=== PATIENT | male | born 1985 | race Caucasian/White ===

== ENCOUNTER 2017-07-10 12:35 | Emergency (ER) | payer SELFPAY ==
[2017-07-10 12:37] VITALS: BP 137/85; PULSE 93; RESP 14; TEMP 97.7; O2SAT 98
[2017-07-10 14:15] LABS: AUTOMATED NEUTROPHIL # 5.3 TH/MM3 (1.8-7.7); BASOPHIL % 0.2 % (0.0-2.0); EOSINOPHIL # 0.1 TH/MM3 (0-0.4); EOSINOPHIL % 1.4 % (0.0-4.0); HEMATOCRIT 47.3 % (39.0-51.0); HEMOGLOBIN 16.9 GM/DL (13.0-17.0); LYMPH % 22.6 % (9.0-44.0); LYMPHOCYTE # 1.8 TH/MM3 (1.0-4.8); MEAN CELL VOLUME 92.6 FL (80.0-100.0); MEAN CORPUSCULAR HEMOGLOBIN 33.1 PG (27.0-34.0); MEAN CORPUSCULAR HGB CONC 35.8 % (32.0-36.0); MEAN PLATELET VOLUME 7.8 FL (7.0-11.0); MONO % 8.6 % (0.0-8.0); MONOCYTE # 0.7 TH/MM3 (0-0.9); NEUT % 67.2 % (16.0-70.0); PLATELET COUNT 246 TH/MM3 (150-450); RED BLOOD COUNT 5.11 MIL/MM3 (4.50-5.90); RED CELL DISTRIBUTION WIDTH 13.6 % (11.6-17.2)
[2017-07-10 14:22] LABS: INTERNATIONAL NORMALIZED RATIO 1.1 RATIO; PROTHROMBIN TIME - PATIENT 10.9 SEC (9.8-11.6)
[2017-07-10 14:30] LABS: ALBUMIN 4.4 GM/DL (3.4-5.0); ALT (GPT) 575 U/L (12-78); AST (GOT) 166 U/L (15-37); BICARBONATE 26.1 MEQ/L (21.0-32.0); BLOOD UREA NITROGEN 8 MG/DL (7-18); CALCIUM 9.2 MG/DL (8.5-10.1); CHLORIDE 106 MEQ/L (98-107); CREATININE 0.87 MG/DL (0.60-1.30); GLOMERULAR FILTRATION RATE 102 ML/MIN (>89); GLUCOSE,RANDOM 85 MG/DL (74-106); LIPASE 115 U/L (73-393); SODIUM (NA) 138 MEQ/L (136-145)
[2017-07-10 14:31] LABS: ALKALINE PHOSPHATASE 90 U/L (45-117); TOTAL BILIRUBIN ADULT 1.1 MG/DL (0.2-1.0); TOTAL PROTEIN 7.7 GM/DL (6.4-8.2)
--- NOTE | 2017-07-10 16:23 | RADRPT ---
EXAM DATE/TIME: 07/10/2017 15:37 [place] COMPARISON: No previous studies available for comparison. INDICATIONS : Right upper quadrant pain. MEDICAL HISTORY : Right upper quadrant pain. SURGICAL HISTORY : None. ENCOUNTER: Initial ACUITY: 1 day PAIN SCORE: 0/10 LOCATION: Right upper quadrant MEASUREMENTS: LIVER: 16.40 cm length COMMON DUCT: 2 mm RIGHT KIDNEY: 12.8 x 4.7 x 5.6 cm FINDINGS: LIVER: Normal echotexture without focal lesion or ductal dilatation. COMMON DUCT: No intraluminal mass or stone visualized. GALLBLADDER: Contains no stones, demonstrates no wall thickening or pericholecystic fluid. PANCREAS: Not well visualized. RIGHT KIDNEY: No evidence of hydronephrosis, stone, or mass. CONCLUSION: 1. Examination is within normal limits. The pancreas was not well-visualized. Jomar Carlin MD on July 10, 2017 at 16:21 Board Certified Radiologist. This report was verified electronically.
[2017-07-10] MEDS ORDERED: TRAM50 PO (16:40)
[2017-07-10] MEDS ORDERED: ZOFR4TAB3 SL (16:40)
--- NOTE | 2017-07-10 16:46 | PD ---
HPI Chief Complaint: GI Complaint Time Seen by Provider: 15:35 Travel History International Travel<30 days: No Contact w/Intl Traveler<30days: No Traveled to known affect area: No History of Present Illness HPI C/O UPPER ABDOMINAL PAIN, CRAMPY, INTERMITTENT, 7/10, ASSOC WITH NAUSEA AND OCC VOMITING....NO DIARRHEA/ROUSE/FEVER/CP/ AT THIS TIME PATIENT IS SYMPTOM FREE EXCEPT FOR SOME OCCASIONAL NAUSEA. PFSH Past Medical History Medical History: Denies Significant Hx Past Surgical History Surgical History: No Previous Surgery Social History Alcohol Use: No Tobacco Use: No Substance Use: No Allergies-Medications (Allergen,Severity, Reaction): Coded Allergies: No Known Allergies (Unverified , 07/10/17) Reported Meds & Prescriptions Reported Meds & Active Scripts Active No Active Prescriptions or Reported Medications Review of Systems General / Constitutional: No: Fever Eyes: No: Visual changes HENT: No: Headaches Cardiovascular: No: Chest Pain or Discomfort Respiratory: No: Shortness of Breath Gastrointestinal: Positive: Nausea, Vomiting, Abdominal Pain Genitourinary: No: Dysuria Musculoskeletal: No: Pain Skin: No Rash Neurologic: No: Weakness Psychiatric: No: Depression Endocrine: No: Polydipsia Hematologic/Lymphatic: No: Easy Bruising Physical Exam Narrative GENERAL: SKIN: Warm and dry. HEAD: Atraumatic. Normocephalic. EYES: Pupils equal and round. No scleral icterus. No injection or drainage. ENT: No nasal bleeding or discharge. Mucous membranes pink and moist. NECK: Trachea midline. No JVD. CARDIOVASCULAR: Regular rate and rhythm. RESPIRATORY: No accessory muscle use. Clear to auscultation. Breath sounds equal bilaterally. GASTROINTESTINAL: Abdomen soft, non-tender, nondistended. RUQ TTP/EPIG BUT WITHOUT REBOUND, GUARDING/RIGIDITY MUSCULOSKELETAL: Extremities without clubbing, cyanosis, or edema. No obvious deformities. NEUROLOGICAL: Awake and alert. No obvious cranial nerve deficits. Motor grossly within normal limits. Five out of 5 muscle strength in the arms and legs. Normal speech. PSYCHIATRIC: Appropriate mood and affect; insight and judgment normal. Data Data Last Documented VS Vital Signs Date Time Temp Pulse Resp B/P (MAP) Pulse Ox O2 Delivery O2 Flow Rate FiO2 07/10/17 12:37 97.7 93 14 137/85 (102) 98 Orders Orders Complete Blood Count With Diff (07/10/17 13:09) Comprehensive Metabolic Panel (07/10/17 13:09) Lipase (07/10/17 13:09) Prothrombin Time / Inr (Pt) (07/10/17 13:09) Act Partial Throm Time (Ptt) (07/10/17 13:09) Us Abdomen Gallbladder (07/10/17 ) Labs Laboratory Tests Test 07/10/17 13:52 White Blood Count 8.0 TH/MM3 Red Blood Count 5.11 MIL/MM3 Hemoglobin 16.9 GM/DL Hematocrit 47.3 % Mean Corpuscular Volume 92.6 FL Mean Corpuscular Hemoglobin 33.1 PG Mean Corpuscular Hemoglobin Concent 35.8 % Red Cell Distribution Width 13.6 % Platelet Count 246 TH/MM3 Mean Platelet Volume 7.8 FL Neutrophils (%) (Auto) 67.2 % Lymphocytes (%) (Auto) 22.6 % Monocytes (%) (Auto) 8.6 % Eosinophils (%) (Auto) 1.4 % Basophils (%) (Auto) 0.2 % Neutrophils # (Auto) 5.3 TH/MM3 Lymphocytes # (Auto) 1.8 TH/MM3 Monocytes # (Auto) 0.7 TH/MM3 Eosinophils # (Auto) 0.1 TH/MM3 Basophils # (Auto) 0.0 TH/MM3 CBC Comment DIFF FINAL Differential Comment Prothrombin Time 10.9 SEC Prothromb Time International Ratio 1.1 RATIO Activated Partial Thromboplast Time 26.8 SEC Blood Urea Nitrogen 8 MG/DL Creatinine 0.87 MG/DL Random Glucose 85 MG/DL Total Protein 7.7 GM/DL Albumin 4.4 GM/DL Calcium Level 9.2 MG/DL Alkaline Phosphatase 90 U/L Aspartate Amino Transf (AST/SGOT) 166 U/L Alanine Aminotransferase (ALT/SGPT) 575 U/L Total Bilirubin 1.1 MG/DL Sodium Level 138 MEQ/L Potassium Level 4.1 MEQ/L Chloride Level 106 MEQ/L Carbon Dioxide Level 26.1 MEQ/L Anion Gap 6 MEQ/L Estimat Glomerular Filtration Rate 102 ML/MIN Lipase 115 U/L [facility] Medical Decision Making Medical Screen Exam Complete: Yes Emergency Medical Condition: Yes Medical Record Reviewed: Yes Differential Diagnosis GASTROENTERITIS V BILIARY COLIC V PANCREATITIS V ABNL ELECTROLYTES Narrative Course PATIENT HAS MILD LFT ELEVATION, NL ALK PHOS, ULTRASOUND NEG FOR GALLSTONES...WILL REFER TO OUTPATIENT CLINIC FOR FURTHER CARE AND EVALUATION Diagnosis Primary Impression: ABNORMAL LIVER ENZYMES (NO GALLSTONES ON ULTRASOUND) Referrals: [facility] Patient Instructions: General Instructions Additional Instructions: AVOID TYLENOL, AVOID ALCOHOL AND MAKE FOLLOW UP APPOINTMENT FOR FURTHER LIVER TESTING THROUGH THIS CLINIC AND APPROPRIATE REFERRALS Scripts Tramadol (Ultram) 50 Mg Tab 50 MG PO Q4H Y for PAIN, #12 TAB 0 Refills Prov: Garrett Spicer MD 07/10/17 Ondansetron Odt (Zofran Odt) 4 Mg Tab 4 MG SL Q6HR Y for Nausea/Vomiting, #12 TAB 0 Refills Prov: Garrett Spiecr MD 07/10/17 Disposition: 01 DISCHARGE HOME Condition: Stable Garrett Spicer MD Jul 10, 2017 16:46
== END 2017-07-10 16:58 | disposition home or self-care (01) ==
LOC: NEPD 12:35
DX: R94.5 Abnormal results of liver function studies (principal); R11.2 Nausea with vomiting, unspecified
CPT/HCPCS: 76705; 80053; 83690; 85025; 85610; 85730

== ENCOUNTER 2017-09-23 21:44 | Emergency (ER) | payer SELFPAY ==
[~2017-09-23] VITALS: Ht 185.4 cm; Wt 95.0 kg
[~2017-09-23 21:44] MED LIST: TRAM50 PO; ZOFR4TAB3 SL
[2017-09-23 21:50] VITALS: BP 115/78; PULSE 68; RESP 16; TEMP 97.9; O2SAT 99
== END 2017-09-23 23:51 | disposition left against medical advice (07) ==
LOC: NED 21:44
DX: Z53.21 Procedure and treatment not carried out due to patient leaving prior to being seen by health care provider (principal)
CPT/HCPCS: 99281

== ENCOUNTER 2017-11-13 12:11 | Emergency (ER) | payer SELFPAY ==
[~2017-11-13] VITALS: Ht 185.4 cm; Wt 97.5 kg
[2017-11-13 12:16] VITALS: BP 140/79; PULSE 99; RESP 16; TEMP 99; O2SAT 97
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
[2017-11-13] MEDS: RESP: ALBUTEROL 2.5 MG/IPRATROPIUM 0.5 MG NEB (SCH) INH (12:39)
[2017-11-13] MEDS ORDERED: ALBUTEROL SULFATE 90 MCG/ACT HFA 8 GM INHALER INH ONE (12:45)
[2017-11-13] MEDS ORDERED: predniSONE 20 MG TAB PO ONE (12:45)
[2017-11-13] MEDS ORDERED: SULFAMETHOXAZOLE-TRIMETHOPRIM DS 800-160 MG TAB PO ONE (12:45)
[2017-11-13] MEDS ORDERED: VENTAER INH (13:05)
[2017-11-13] MEDS ORDERED: PRED20 PO (13:05)
[2017-11-13] MEDS ORDERED: BACT800T5 PO (13:05)
[2017-11-13] MEDS ORDERED: PROZ20CA11 PO (13:30)
[2017-11-13] MEDS ORDERED: SERO300T PO (13:30)
[2017-11-13] MEDS ORDERED: GABA300C5 PO (13:30)
== END 2017-11-13 13:46 | disposition home or self-care (01) ==
LOC: NEPK 12:11
DX: J40 Bronchitis, not specified as acute or chronic (principal); Z72.0 Tobacco use
CPT/HCPCS: 94640; 94664; 99283

== ENCOUNTER 2018-08-29 01:42 | Inpatient (IN) ==
[2018-08-29] MEDS ORDERED: Naloxone Inj 2 MG/2 ML Vial ONE (02:03)
[2018-08-29] MEDS ORDERED: Naloxone Inj 0.4 MG/ML Vial IV.PUSH ONE ×2 (02:16→05:55)
[2018-08-29] MEDS ORDERED: Sod Chloride 0.9% Inj 1,000 ML IV.SIG ONE (02:16)
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
[2018-08-29 02:34] LABS: Baso % (Auto) 0.5 % (0.0-2.0); Eos # (Auto) 0.2 th/mm3 (0.0-0.4); Eos % (Auto) 1.8 % (0.0-4.0); Hematocrit 44.2 % (39.0-51.0); Hemoglobin 15.4 gm/dL (13.0-17.0); Lymph # (Auto) 2.6 th/mm3 (1.0-4.8); Lymph % (Auto) 29.2 % (9.0-44.0); Mean Corpuscular HGB Conc 34.9 % (32.0-36.0); Mean Corpuscular Hemoglobin 31.5 pg (27.0-34.0); Mean Corpuscular Volume 90.2 fL (80.0-100.0); Mono # (Auto) 0.6 th/mm3 (0.0-0.9); Neut # (Auto) 5.5 th/mm3 (1.8-7.7); Neut % (Auto) 61.5 % (16.0-70.0); Platelet Count 247 th/mm3 (150-450); Red Cell Distribution Width 13.2 % (11.6-17.2); White Blood Count 8.9 th/mm3 (4.0-11.0)
[2018-08-29 02:50] LABS: Anion Gap 7 meq/L (5-15); Blood Urea Nitrogen 8 mg/dL (7-18); Calcium 8.2 mg/dL (8.5-10.1); Carbon Dioxide 26.6 meq/L (21.0-32.0); Chloride 105 meq/L (98-107); Glomerular Filtration Rate 72 mL/min (>89); Glucose,Random 132 mg/dL (74-106); Potassium 4.2 meq/L (3.5-5.1); Sodium 139 meq/L (136-145)
[2018-08-29] MEDS ORDERED: Acetaminophen 325 MG Tablet PO PRN (06:54)
[2018-08-29] MEDS ORDERED: Bisacodyl 10 MG Supp RECTAL PRN (06:54)
[2018-08-29 08:13] LABS: Amphetamine Screen,Urine Neg (Neg); Barbiturate Screen,Urine Neg (Neg); Cannabinoid Screen,Urine Neg (Neg); Cocaine Screen,Urine Neg (Neg)
[2018-08-29 08:20] LABS: Opiate Screen,Urine Neg (Neg)
[2018-08-29] MEDS: Sod Chloride 0.9% Inj 1,000 ML IV.CONT SCH ×2 (08:29→18:55)
--- NOTE | 2018-08-29 11:29 | P.HPIM ---
History of Present Illness Primary Care Physician: UNKNOWN Chief Complaint: I took a bag full of fentanyl History of Present Illness: 33-year-old male with a history of heroin, opioid, cocaine and alcohol abuse, PTSD, depression was brought to the emergency room via taxi with altered mental status. Patient admits snorting a entire bag of heroin and fentanyl prior to arrival. He reports he is depressed but denies any intent to harm himself. Patient reports he is currently in sober living facility however found a bag of drugs and reports that he was trying to get high. He does admit to feeling at rock bottom and admits that this is the third time in this past month that he has actually overdose on drugs. He reports a history of opiate abuse for the past 20 years and started using in middle school. He also reports this week used cocaine and drank heavily alcohol. He is also dependent on benzodiazepine and uses Xanax and Klonopin on the streets. He recently started on Wellbutrin due to continued depression supplementing his Prozac as prescribed by provider at [facility]. He also reports taking Cogentin and Thorazine. The emergency room physician was informed that paramedics did attempt to assist the patient for opiate overdose prior to him coming in via taxi and was given IV Narcan at that time but refusing transport to the emergency room. Patient was given 2 more doses of IV Narcan with continued altered mental status. Inpatient Certification Inpatient Certification: I certify that the inpatient services were ordered in accordance with Medicare regulations governing the order. This includes certification that hospital inpatient services are reasonable and necessary and in the case of services not specified as inpatient-only under 42 CFR 419.22(n), that they are appropriately provided as inpatient services in accordance to with the 2-midnight benchmark under 43 CFR 412.3(e) Estimated Total Length of Stay (Days): 2 Plans for Post Hospital Care: Home Review of Systems Constitutional: Reports as per HPI and Denies headache(s) Eyes: Denies blurry vision, Denies change in vision and Denies eye pain Ears, Nose, Mouth, and Throat: Denies abnormal hearing, Denies headache(s), Denies mouth pain, Denies nasal congestion, Denies neck pain and Denies sore throat Cardiovascular: Denies chest pain, Denies pedal edema, Denies palpitations and Denies dyspnea Respiratory: Denies cough and Denies dyspnea Gastrointestinal: Denies abdominal pain, Denies constipation, Denies loose stools, Denies nausea and Denies vomiting Musculoskeletal: Reports as per HPI, Reports back pain, Denies myalgias, Denies arthralgias, Denies neck pain and Denies numbness Skin/Breast: Denies new lesions and Denies rash Neurologic: Denies abnormal hearing, Denies headache(s), Denies focal weakness, Denies memory loss and Denies numbness Psychiatric: Reports anxiety, Denies change in appetite, Reports confusion, Reports depression, Reports difficulty concentrating, Reports hopelessness, Denies memory loss, Reports mood swings, Reports panic attacks, Denies visual hallucinations, Denies tactile hallucinations and Denies suicidal ideation Endocrine: Denies cold intolerance, Denies heat intolerance and Denies palpitations Hematologic/Lymphatic: Denies easy bleeding and Denies easy bruising PMFSH Medical History Medical History Drug abuse (Acute) Anxiety (Chronic) Back injury (Chronic) Bipolar disorder (Chronic) Degenerative arthritis (Chronic) Depression (Chronic) PTSD (post-traumatic stress disorder) (Chronic) Tardive dyskinesia (Inactive) Surgical History Surgical History No history of previous surgery (Chronic) Social History Social History Substance History: Active Abuse Second Hand Smoke Exposure: Yes Smoking Status: Former smoker Tobacco Type: Cigarettes How Often Do You Have a Drink Containing Alcohol: Never [facility] within the Last 8 Weeks: No Recent Out of Country Travel within the Last 8 Weeks: No Substance Abuse Detail Heroin: Substance Use Status: Active Route Used Substance Abuse: Inhalation Reason for Use: Calm Down Immunization History Tetanus Immunization: Unsure Medications and Allergies Allergies Allergy/AdvReac Type Severity Reaction Status Date / Time haloperidol [From Haldol] Allergy Severe Hives Verified 08/29/18 01:54 Home Medications Medication Instructions Recorded Confirmed Type fluoxetine [Prozac] 20 mg PO DAILY 07/26/18 08/29/18 History gabapentin 600 mg PO TID 07/26/18 08/29/18 History bupropion HCl [Wellbutrin SR] 150 mg PO DAILY 08/23/18 08/29/18 History chlorpromazine 50 mg PO TID 08/23/18 08/29/18 History Active Medications: Active Medications Acetaminophen (Tylenol) 650 mg PO Q4H PRN PRN Reason: Temp > 100.4 Al Hydroxide/Mg Hydroxide (Milk Of Magnesia Liq) 30 ml PO Q12H PRN PRN Reason: Mild Constipation Bisacodyl (Dulcolax Supp) 10 mg RECTAL DAILY PRN PRN Reason: SEVERE CONSITIPATION Sodium Chloride (Ns Inj) 1,000 mls @ 100 mls/hr IV.CONT .Q10H [facility] Last Admin: 08/29/18 08:29 Dose: 100 mls/hr Lactulose (Lactulose Liq) 30 ml PO DAILY PRN PRN Reason: SEVERE CONSITIPATION Ondansetron HCl (Zofran Inj) 4 mg IV.PUSH Q6H PRN PRN Reason: NAUSEA OR VOMITING Sennosides (Senokot) 17.2 mg PO Q12H PRN PRN Reason: Moderate Constipation Sodium Chloride (Ns Flush) 2 ml IV.FLUSH BID [facility] Last Admin: 08/29/18 10:47 Dose: 2 ml Sodium Chloride (Ns Flush) 2 ml IV.FLUSH PRN PRN PRN Reason: FLUSH AFTER USING IV ACCESS Physical Exam Vital signs: Vital Signs 08/29/18 01:55 08/29/18 01:57 08/29/18 02:15 Temperature 98.9 F Pulse Rate 108 H 97 H 92 H Respiratory Rate 16 10 L 18 Blood Pressure 130/74 144/85 H Pulse Oximetry 93 L 98 99 08/29/18 02:54 08/29/18 05:28 08/29/18 06:00 Temperature Pulse Rate 78 77 90 Respiratory Rate 18 18 Blood Pressure 127/67 140/71 Pulse Oximetry 99 95 100 08/29/18 08:00 08/29/18 10:48 Temperature Pulse Rate 75 68 Respiratory Rate 18 23 Blood Pressure 116/59 L 117/63 Pulse Oximetry 100 100 Intake & Output 08/28/18 08/29/18 08/29/18 18:59 06:59 18:59 Intake Total 1000 / 1000 Balance 1000 / 1000 Weight 104.326 kg Intake: IV 1000 / 1000 NS Inj 1,000 ML @ Wide Open IV. 1000 / 1000 SIG BOLUS ONE Rx#:[id number] Narrative: GENERAL: Well-nourished well-developed white male no acute distress sitting up in stretcher in the emergency room SKIN: Warm and dry. HEAD: Atraumatic. Normocephalic. EYES: Pupils equal and round. No scleral icterus. No injection or drainage. ENT: No nasal bleeding or discharge. Mucous membranes pink and moist. NECK: Trachea midline. No JVD. CARDIOVASCULAR: Regular rate and rhythm. RESPIRATORY: No accessory muscle use. Clear to auscultation. Breath sounds equal bilaterally. GASTROINTESTINAL: Abdomen soft, non-tender, nondistended. Normoactive bowel sounds MUSCULOSKELETAL: Extremities without clubbing, cyanosis, or edema. No obvious deformities. NEUROLOGICAL: Awake and alert to person place and situation. No obvious cranial nerve deficits. Motor grossly within normal limits. Five out of 5 muscle strength in the arms and legs. Normal speech. PSYCHIATRIC: Depressed mood; insight and judgment normal. Results Labs CBC & Chem 7: 08/29/18 02:21 08/30/18 04:29 Caprini VTE Risk Assessment Caprini VTE Risk Assessment: No/Low Risk (score <= 1) Caprini Risk Assessment Model: Point Value = 1 Point Value = 2 Point Value = 3 Point Value = 5 Age 41-60 Minor surgery BMI > 25 kg/m2 Swollen legs Varicose veins or History of unexplained or recurrent spontaneous Oral contraceptives or hormone replacement Sepsis (< 1 month) Serious lung disease, including pneumonia (< 1 month) Abnormal pulmonary function Acute myocardial infarction Congestive heart failure (< 1 month) History of inflammatory bowel disease Medical patient at bed rest Age 61-74 Arthroscopic surgery Major open surgery (> 45 min) Laparoscopic surgery (> 45 min) Malignancy Confined to bed (> 72 hours) Immobilizing plaster cast Central venous access Age >= 75 History of VTE Family history of VTE Factor V Leiden Prothrombin [id number] Lupus anticoagulant Anticardiolipin antibodies Elevated serum homocysteine Heparin-induced thrombocytopenia Other congenital or acquired thrombophilia Stroke (< 1 month) Elective arthroplasty Hip, pelvis, or leg fracture Acute spinal cord injury (< 1 month) Prophylaxis Regimen: Total Risk Factor Score Risk Level Prophylaxis Regimen 0-1 Low Early ambulation 2 Moderate Order ONE of the following: *Sequential Compression Device (SCD) *Heparin 5000 units SQ BID 3-4 Higher Order ONE of the following medications: *Heparin 5000 units SQ TID *Enoxaparin/Lovenox 40 mg SQ daily (WT < 150 kg, CrCl > 30 mL/min) *Enoxaparin/Lovenox 30 mg SQ daily (WT < 150 kg, CrCl > 10-29 mL/min) *Enoxaparin/Lovenox 30 mg SQ BID (WT < 150 kg, CrCl > 30 mL/min) AND/OR *Sequential Compression Device (SCD) 5 or more Highest Order ONE of the following medications: *Heparin 5000 units SQ TID (Preferred with Epidurals) *Enoxaparin/Lovenox 40 mg SQ daily (WT < 150 kg, CrCl > 30 mL/min) *Enoxaparin/Lovenox 30 mg SQ daily (WT < 150 kg, CrCl > 10-29 mL/min) *Enoxaparin/Lovenox 30 mg SQ BID (WT < 150 kg, CrCl > 30 mL/min) AND *Sequential Compression Device (SCD) Assessment and Plan Plan 33-year-old white male with a history of bipolar disorder, general anxiety disorder, depression, drug abuse with opiate, heroin, cocaine, alcohol presents with altered mental status and admitted overdose Acute toxic metabolic encephalopathy-likely due to drug overdosecontinue neurochecks, responding to Narcan. Drug overdose with fentanyl/heroin with recent cocaine use -continue close monitoring, cessation counseling. Will need to continue detox and drug rehab. Consider starting suboxone in am to detox History of bipolar disorder with substance induced depression-consult psychiatry , patient reports he was recently placed on Wellbutrin to supplement Prozac, we will restart Prozac but await psychiatry's evaluation hard to starting any other medications. History of alcohol abuse with history of previous drug withdrawal related seizures- [facility] protocol. Acute kidney injury secondary to drug overdoseIV fluid hydration and monitor creatinine, avoid nephrotoxins. Discussed with mother at bedside. She would like to assist getting the patient to a long-term drug rehab facility. Full code.
[2018-08-29] MEDS ORDERED: Naloxone Inj 0.4 MG/ML Vial IV.PUSH PRN (11:30)
[2018-08-29] MEDS ORDERED: Ibuprofen 400 MG Tablet PO PRN (11:31)
[2018-08-29] MEDS ORDERED: Ketorolac Inj 30 MG/ML (IVP) Vial IV.PUSH PRN (11:31)
[2018-08-29] MEDS: Gabapentin 300 MG Capsule PO SCH ×2 (13:06→18:30)
--- NOTE | 2018-08-29 21:38 | ECG ---
Date Performed: 08/29/2018 Time Performed: 02:45:51 PTAGE: 33 years EKG: Sinus rhythm POSSIBLE LEFT ATRIAL ENLARGEMENT BORDERLINE ECG PREVIOUS TRACING : 02/24/2018 05.54 Since the previous tracing, no significant change noted DOCTOR: Tyrone Romero Interpretating Date/Time 08/29/2018 21:36:44
[2018-08-29] MEDS: LORazepam 1 MG Tablet PO PRN (22:13)
[2018-08-30] MEDS: Sod Chloride 0.9% Inj 1,000 ML IV.CONT SCH (04:36)
[2018-08-30 06:48] LABS: Alanine Aminotransferase 84 U/L (12-78)
[2018-08-30 06:51] LABS: Alkaline Phosphatase 67 U/L (45-117); Total Protein 6.6 g/dL (6.4-8.2)
[2018-08-30 06:52] LABS: Albumin 3.6 g/dL (3.4-5.0); Anion Gap 6 meq/L (5-15); Aspartate Aminotransferase 40 U/L (15-37); Blood Urea Nitrogen 8 mg/dL (7-18); Calcium 8.5 mg/dL (8.5-10.1); Carbon Dioxide 29.8 meq/L (21.0-32.0); Chloride 105 meq/L (98-107); Glomerular Filtration Rate Greater Than 89 mL/min (>89); Glucose,Random 76 mg/dL (74-106); Potassium 4.2 meq/L (3.5-5.1); Sodium 141 meq/L (136-145)
[2018-08-30 08:59] VITALS: O2SAT 99
[2018-08-30] MEDS ORDERED: FLUoxetine 20 MG Capsule PO SCH (09:00)
[2018-08-30] MEDS: Gabapentin 300 MG Capsule PO SCH (10:09)
[2018-08-30] MEDS: LORazepam 1 MG Tablet PO PRN (10:09)
--- NOTE | 2018-08-30 10:41 | P.DS ---
DS: Providers Date of admission: 08/29/18 06:54 Primary care physician: UNKNOWN Consults: 08/29/18 11:31 Consult to Psychiatry Routine Consulting Provider: Domingo Frank Reason for Consultation: History of bipolar, substance induced depression, recent drug overdose Spoke with:: APUL/MONALISA Date Notified:: 08/29/18 Time Notified:: 12:22 Ordering Provider: JOSSELINE Brief History from admission: 33-year-old male with a history of heroin, opioid , cocaine and alcohol abuse, PTSD, depression was brought to the emergency room via taxi with altered mental status. Patient admits snorting a entire bag of heroin and fentanyl prior to arrival. He reports he is depressed but denies any intent to harm himself. Patient reports he is currently in sober living facility however found a bag of drugs and reports that he was trying to get high. He does admit to feeling at rock bottom and admits that this is the third time in this past month that he has actually overdose on drugs. He reports a history of opiate abuse for the past 20 years and started using in middle school. He also reports this week used cocaine and drank heavily alcohol. He is also dependent on benzodiazepine and uses Xanax and Klonopin on the streets. He recently started on Wellbutrin due to continued depression supplementing his Prozac as prescribed by provider at [facility]. He also reports taking Cogentin and Thorazine. The emergency room physician was informed that paramedics did attempt to assist the patient for opiate overdose prior to him coming in via taxi and was given IV Narcan at that time but refusing transport to the emergency room. Patient was given 2 more doses of IV Narcan with continued altered mental status. DS: Summary Mr. Rodrigues is a 33-year-old male. He has a past problem with substance abuse, specifically opioids. Recently he found some opioids and overdose on opiates for recreational reasons. He came to the hospital with toxic encephalopathy, mild acute kidney injury, and opioid overdose. He is been monitored and treated for this. At this point he is returned back to baseline. No residual opioid effect. He is medically stable and cleared for discharge home today. He is recommended to follow-up as an outpatient substance rehab facility and he plans to do this. Resume prior baseline treatments. Time Spent with Patient Total time spent providing and/or coordinating discharge services: Less than 30 minutes Quality: VTE Deep Vein Thrombosis/Pulmonary Embolism Present on Admission: No Results Labs on day of discharge: Labs from last 24 hours 08/30/18 04:29 Sodium 141 Potassium 4.2 Chloride 105 Carbon Dioxide 29.8 Anion Gap 6 BUN 8 Creatinine 0.80 Estimated GFR Greater than 89 Random Glucose 76 Calcium 8.5 Total Bilirubin 0.5 AST 40 H ALT 84 H Alkaline Phosphatase 67 Total Protein 6.6 D Albumin 3.6 Discharge Plan Discharge Disposition Patient Disposition: Discharge Home Discharge Condition Condition: Stable Discharge Order Discharge Orders: Discharge Order (Routine); Ordered 08/30/18 Ordered By: Demetrius Guzman Discharge Details Anticipated Discharge Date: 08/30/18 Discharge Comment: October discharge after Suboxone dose. Follow up at a substance rehab center planned by patient. Physicians Team Primary Care Provider: RONEN, Attending Provider: Demetrius Guzman Other Providers: Domingo Frank Rxs /Orders / Referrals /Forms Prescriptions: Continue gabapentin 600 mg Tablet 600 mg PO TID RF: 0 fluoxetine [Prozac] 20 mg Capsule 20 mg PO DAILY RF: 0 bupropion HCl [Wellbutrin SR] 150 mg Tablet Sustained-Release 12 Hr 150 mg PO DAILY RF: 0 chlorpromazine 50 mg Tablet 50 mg PO TID RF: 0 Referrals: UNKNOWN, [Primary Care Provider] - See Instructions Status ED Status: Left Department
[2018-08-30] MEDS ORDERED: Buprenorphine/Naloxone 8/2 MG Sublingual Tablet SL ONE (11:00)
[2018-08-30 12:46] VITALS: BP 111/60; PULSE 75; RESP 18; TEMP 97.9
--- NOTE | 2018-08-30 13:06 | P.CONPSY ---
Provisional Diagnosis Admission Date: August 29, 2018 06:54 [place] Polysubstance dependence including opiates, cocaine, cannabis, alcohol, benzodiazepines, history of bipolar and PTSD [place] Deferred [place] No medical history History of Present Illness Service: Medicine Primary Care Provider: UNKNOWN Chief Complaint: I took a bag full of fentanyl History of Present Illness: The patient is a 33-year-old man, domiciled a sober house, single, unemployed, with a psychiatric history of self-reported PTSD, bipolar disorder, multiple [place] acts, polysubstance dependence including opiates, cocaine, alcohol, benzodiazepines, history of detox, rehabs, severe withdrawal including seizures, medical history of TBI, lower back pain, who was brought to the emergency room via taxi with altered mental status. Patient admits snorting an entire bag of heroin and fentanyl prior to arrival. He initially reports he is depressed but denies any intent to harm himself. Patient reports he is currently in sober living facility however found a bag of drugs and reports that he was trying to get high. He does admit to feeling at rock bottom and admits that this is the third time in this past month that he has actually overdose on drugs. He reports a history of opiate abuse for the past 20 years and started using in middle school. He also reports this week used cocaine and drank heavily alcohol. He is also dependent on benzodiazepine and uses Xanax and Klonopin on the streets. He recently started on Wellbutrin due to continued depression supplementing his Prozac as prescribed by provider at [facility]. He also reports taking Cogentin and Thorazine. During the evaluation the patient presents calm, cooperative and pleasant. Patient is mildly very often. He is able to tell me that his plan is to immediately engage in a 28 days rehabilitation program. At the moment of the evaluation the patient denies symptomatology of depression, denies anhedonia, he denies hopelessness, helplessness, worthlessness, he denies suicidal enemas ideation, he denies visual and auditory hallucinations. The patient is clinically sober. At this moment reports some anxiety and mild lateral tremors related with alcohol withdrawal. He is fully oriented x3, no attention deficit, no fluctuation of consciousness. PPHx: , with a psychiatric history of self-reported PTSD, bipolar disorder, multiple [place] acts, polysubstance dependence including opiates, cocaine, alcohol, benzodiazepines, history of detox, rehabs, severe withdrawal including seizures, PMHx: medical history of TBI, lower back pain, Family Hx: No family psychiatric history Substance Hx: Reports the use of daily cocaine, heroine, cannabis, alcohol and benzodiazepines Social Hx: man, domiciled a sober house, single, unemployed Review of Systems All other systems reviewed negative except as stated in HPI Constitutional: Denies anorexia, Denies body ache(s), Denies chills, Denies daytime sleepiness, Denies excessive sweating, Denies fatigue, Denies fever(s), Denies headache(s), Denies increased appetite, Denies lack of energy, Denies malaise, Denies night sweats, Denies weakness, Denies weight gain, Denies weight loss, Denies other Eyes: Denies blind spots, Denies blurry vision, Denies bulging eyes, Denies change in vision, Denies double vision, Denies discharge, Denies dry eyes, Denies floaters, Denies irritation, Denies itchy eyes, Denies loss of vision, Denies pain, Denies requires corrective lenses, Denies sensitivity to light, Denies other Ears, Nose, Mouth, and Throat: Denies abnormal hearing, Denies bleeding gums, Denies bad breath, Denies change in voice, Denies dental pain, Denies difficulty swallowing, Denies dizziness, Denies dry mouth, Denies ear discharge , Denies ear pain, Denies facial pain, Denies headache(s), Denies hearing loss, Denies hoarseness, Denies lip swelling, Denies nosebleed, Denies mouth lesions, Denies mouth pain, Denies nasal congestion, Denies nasal discharge, Denies nasal obstruction, Denies nasal trauma, Denies neck lump, Denies neck pain, Denies nose pain, Denies pain with swallowing, Denies poor balance, Denies post nasal drip, Denies ringing in the ears, Denies sinus pain, Denies sinus pressure , Denies sore throat, Denies throat swelling, Denies tongue swelling, Denies other Cardiovascular: Denies chest pain, Denies chest pain at rest, Denies chest pain with activity, Denies excessive sweating, Denies fainting, Denies fast heart rate, Denies foot swelling, Denies generalized swelling, Denies irregular heart rhythm, Denies leg pain with activity, Denies leg sores, Denies leg swelling, Denies lightheadedness, Denies radiating jaw, neck or arm pain, Denies rapid, pounding, or irregular heartbeat, Denies shortness of breath, Denies shortness of breath with activity, Denies shortness of breath when lying down, Denies shortness of breath causing sudden awakening, Denies slow heart rate, Denies other Respiratory: Denies change in phlegm color, Denies chest congestion, Denies cough, Denies coughing up blood, Denies excessive phlegm production, Denies pain on inspiration, Denies pain with cough, Denies shortness of breath, Denies shortness of breath with activity, Denies snoring, Denies stridor, Denies wheezing, Denies other Gastrointestinal: Denies abdominal pain, Denies belching, Denies black, tarry stools, Denies bloating, Denies bright, red blood in stools, Denies change in bowel habits, Denies constant urge to pass stool, Denies change in stools, Denies coffee ground vomit, Denies constipation, Denies cramping, Denies difficulty swallowing, Denies excessive passing of gas, Denies feeling full early, Denies heartburn, Denies incontinent of stools, Denies loose stools, Denies nausea, Denies pain with swallowing, Denies vomiting, Denies vomiting blood, Denies other Genitourinary: Denies blood in semen, Denies blood in urine, Denies decreased urination, Denies difficulty urinating, Denies difficulty with ejaculations, Denies erectile dysfunction, Denies genital lesions, Denies genital pain, Denies painful urination, Denies side pain, Denies frequent nighttime urination , Denies painful ejaculations, Denies penile discharge, Denies scrotal swelling , Denies testicle lump, Denies testicle pain, Denies urinary frequency, Denies urinary hesitancy, Denies urinary incontinence, Denies urinary urgency, Denies other Musculoskeletal: Denies abnormal walking, Denies back pain, Denies body aches, Denies decreased muscle mass, Denies deformity, Denies joint pain, Denies joint swelling, Denies limited joint movement, Denies loss of height, Denies muscle cramps, Denies muscle weakness, Denies neck pain, Denies numbness, Denies radiating pain into limb, Denies stiffness, Denies tingling, Denies other Skin/Breast: Denies acne, Denies bleeding lesions, Denies boil, Denies breast swelling, Denies breast skin changes, Denies breast pain, Denies breast lump, Denies change in breast shape, Denies change in hair, Denies change in skin color, Denies changing lesions, Denies dry skin, Denies excessive hair growth, Denies hair loss, Denies itching, Denies lesions, Denies nail changes, Denies new lesions, Denies nipple discharge, Denies non-healing lesions, Denies redness , Denies sensitivity to light, Denies rash, Denies skin pain, Denies skin ulcer , Denies sores, Denies stretch muir, Denies unusual bruising, Denies wounds, Denies yellowing of the skin, Denies other Neurologic: Reports tremor(s), Denies abnormal hearing, Denies abnormal movements, Denies abnormal speech, Denies abnormal walking, Denies behavioral changes, Denies burning sensations, Denies confusion, Denies dizziness, Denies fainting, Denies frequent falls, Denies headache(s), Denies lack of coordination , Denies localized weakness, Denies loss of vision, Denies memory loss, Denies numbness, Denies other visual disturbances, Denies radiating pain, Denies restless legs, Denies convulsions, Denies seizure-like activity, Denies sensory deficit, Denies tingling, Denies tingling/numbness/burning sensations, Denies unsteadiness, Denies weakness, Denies other Psychiatric: Denies abnormal sleep pattern, Denies anxiety, Denies behavioral changes, Denies change in appetite, Denies change in sex drive, Denies confusion , Denies depression, Denies difficulty concentrating, Denies hearing things others do not hear, Denies hopelessness, Denies irritability, Denies lack of enjoyment, Denies memory loss, Denies mood swings, Denies panic attacks, Denies paranoia, Denies seeing things others do not see, Denies sensing things others do not sense, Denies tactile hallucinations, Denies thoughts of hurting/killing others, Denies thoughts of hurting/killing yourself, Denies other [facility] - History History Provided By: Patient - Medical History Medical History: Medical History (Last Updated 08/29/18 @ 11:17 by Navdeep Jain MD) Drug abuse Anxiety Back injury Bipolar disorder Degenerative arthritis Depression PTSD (post-traumatic stress disorder) Tardive dyskinesia - Surgical History Surgical History: Surgical History (Last Updated 08/29/18 @ 11:17 by Navdeep Jain MD) No history of previous surgery - Family History Family History: Family History (Last Reviewed 08/29/18 @ 02:20 by Cookie Pennington MD) Mother Migraine - Tobacco History Second Hand Smoke Exposure: Yes Tobacco Use In Past 30 Days: No Smoking Status: Former smoker Tobacco Type: Cigarettes - Alcohol History How Often Do You Have a Drink Containing Alcohol: Never - Substance Use History Substance History: Active Abuse - Substance Use Type Heroin Status: Active Route Used: Inhalation Reason for Use: Calm Down - Travel History Recent Travel in the [place] Within the Last 8 Weeks: No Recent Travel Out of the Country Within the Last 8 Weeks: No - Immunization History Tetanus Immunization: Unsure Hx Influenza Vaccine This Season: No Medications and Allergies Active Medications: Active Medications Acetaminophen (Tylenol) 650 mg PO Q4H PRN PRN Reason: Temp > 100.4 Al Hydroxide/Mg Hydroxide (Milk Of [place]kel[place] Liq) 30 ml PO Q12H PRN PRN Reason: Mild Constipation Bisacodyl (Dulcolax Supp) 10 mg RECTAL DAILY PRN PRN Reason: SEVERE CONSITIPATION Flumazenil (Romazicon Inj) 0.2 mg IV.PUSH Q1M PRN PRN Reason: OVERSEDATION Fluoxetine HCl (Prozac) 20 mg PO DAILY [facility] Last Admin: 08/30/18 10:10 Dose: 20 mg Gabapentin (Neurontin) 600 mg PO TID [facility] Last Admin: 08/30/18 10:09 Dose: 600 mg Sodium Chloride (Ns Inj) 1,000 mls @ 100 mls/hr IV.CONT .Q10H [facility] Last Admin: 08/30/18 04:36 Dose: 100 mls/hr Ibuprofen (Motrin) 400 mg PO Q6HR PRN PRN Reason: PAIN SCALE 1 TO 5 Ketorolac Tromethamine (Toradol Inj) 15 mg IV.PUSH Q6H PRN PRN Reason: PAIN SCALE 6 TO 10 Stop: 09/03/18 11:30 Lactulose (Lactulose Liq) 30 ml PO DAILY PRN PRN Reason: SEVERE CONSITIPATION Lorazepam (Ativan) 1 mg PO Q4H PRN PRN Reason: for CIWA 8-10 Last Admin: 08/30/18 10:09 Dose: 1 mg Lorazepam (Ativan) 2 mg PO Q2H PRN PRN Reason: for CIWA 11-14 Last Admin: 08/29/18 15:03 Dose: 2 mg Lorazepam (Ativan Inj) 2 mg IV.PUSH Q2H PRN PRN Reason: for CIWA 11-14 IF PO INTOLERAT Lorazepam (Ativan Inj) 2 mg IV.PUSH Q1H PRN PRN Reason: for CIWA 15-20 Lorazepam (Ativan Inj) 2 mg IV.PUSH Q15M PRN PRN Reason: for CIWA > 20 Lorazepam (Ativan Inj) 1 mg IV.PUSH Q4H PRN PRN Reason: for CIWA 8-10 PO INTOLERABLE Naloxone HCl (Narcan Inj) 0.4 mg IV.PUSH UNSCH PRN PRN Reason: SEE LABEL COMMENTS Ondansetron HCl (Zofran Inj) 4 mg IV.PUSH Q6H PRN PRN Reason: NAUSEA OR VOMITING Sennosides (Senokot) 17.2 mg PO Q12H PRN PRN Reason: Moderate Constipation Sodium Chloride (Ns Flush) 2 ml IV.FLUSH BID [facility] Last Admin: 08/29/18 23:12 Dose: Not Given Sodium Chloride (Ns Flush) 2 ml IV.FLUSH PRN PRN PRN Reason: FLUSH AFTER USING IV ACCESS Allergies Allergy/AdvReac Type Severity Reaction Status Date / Time haloperidol [From Haldol] Allergy Severe Hives Verified 08/29/18 01:54 Home Medications Medication Instructions Recorded Confirmed Type fluoxetine [Prozac] 20 mg PO DAILY 07/26/18 08/29/18 History gabapentin 600 mg PO TID 07/26/18 08/29/18 History bupropion HCl [Wellbutrin SR] 150 mg PO DAILY 08/23/18 08/29/18 History chlorpromazine 50 mg PO TID 08/23/18 08/29/18 History Exam Vital signs: Vital Signs 08/29/18 15:03 08/29/18 17:39 08/29/18 18:14 Temperature 97.5 F L Pulse Rate 71 60 61 Respiratory Rate 13 18 Blood Pressure 119/61 118/72 119/71 Pulse Oximetry 99 100 99 08/29/18 20:15 08/30/18 00:20 08/30/18 04:15 Temperature 97.9 F 97.3 F L 97.2 F L Pulse Rate 64 65 60 Respiratory Rate 20 20 20 Blood Pressure 116/73 115/56 L 125/65 Pulse Oximetry 99 98 97 08/30/18 08:00 08/30/18 12:00 Temperature 97.6 F 97.9 F Pulse Rate 64 75 Respiratory Rate 16 18 Blood Pressure 128/72 111/60 Pulse Oximetry 99 99 Intake & Output 08/29/18 08/30/18 08/30/18 18:59 06:59 18:59 Intake Total 1000 / 1000 1000 / 1000 Balance 1000 / 1000 1000 / 1000 Weight 108 kg 109.7 kg Intake: IV 1000 / 1000 1000 / 1000 NS Inj 1,000 ML @ 100 mls/hr IV 1000 / 1000 1000 / 1000 .CONT .Q10H [facility] Rx#:[id number] Other: # Voids 5 Weight On Admission 108 kg Narrative: Mild bilateral tremors, but no EPS, - Constitutional no acute distress, mild distress - Routine HEENT Exam Head: Present: normocephalic, atraumatic Eye: Present: EOMI, PERRL ENT: Present: mucous membranes moist Mental Status Examination Appearance: Appropriate Consciousness: Alert Orientation: x4 Motor Activity: Normal gait Speech: Unremarkable Language: Adequate Fund of Knowledge: Adequate Attention and Concentration: Adequate Memory: Unremarkable Mood: Appropriate Affect: Appropriate Thought Process & Associations: Intact Thought Content: Appropriate Hallucination Type: None Delusion Type: None Suicidal Ideation: No Suicidal Plan: No Suicidal Intention: No Homicidal Ideation: No Homicidal Plan: No Homicidal Intention: No Insight: Adequate Judgment: Adequate Assessment and Plan - Assessment (1) Polysubstance dependence Code(s): F19.20 - Other psychoactive substance dependence, uncomplicated Status: Acute - Plan Plan: On my psychiatric evaluation today the patient does not present any concerning, subjective or objective neuropsychiatric symptoms that requires an immediate psychiatric intervention. The patient denies symptoms of depression, he denies anxiety, yung and psychosis. He does report bilateral hand tremors, sweating secondary to alcohol benzodiazepine withdrawal. The patient denies suicidal and homicidal ideation, he denies visual and auditory hallucinations. Patient is logical, coherent and relevant. He is future oriented, his plan is once discharged to go to a 28 days program rehab. This patient has a psychiatric history of PTSD, bipolar disorder, but no psychiatric hospitalizations, he does have multiple rehabs and detoxes in the past. His recent overdose was not related with suicidality, but was accidental with intentions to get high. Patient was widely educated about the importance of avoiding recreational drugs , and engaging in a rehab program. He does not meet criteria for involuntary psychiatric admission at this moment. Support, motivation provided. Ativan 2 mg p.o. now for alcohol withdrawal. Continue CIWA. Consult appreciated. Justification for Continued Inpatient Stay: No admission is indicated
== END 2018-08-30 17:15 | disposition home or self-care (01) | DRG 917 ==
LOC: NEPD 01:42 → NEDA 06:54 → NEDH 08:00 → N05 17:56
PROVIDERS: ADMIT Hospitalist; ATTEND Hospitalist
CPT/HCPCS: 80048; 80053; 80307; 85025; 90774; 90776; 90784; 93005; 96374; 96376; 99285; C8952; J2310; J7030